=== PATIENT | female | born 1950 | race Caucasian/White ===

== ENCOUNTER → 2017-01-30 | Outpatient (CLI) | payer OTHER ==
[~2017-01-30] MED LIST: CALC-440 PO; CITRACAL PO; FOSAMAX PEG
--- NOTE | 2017-01-30 14:57 | DIAGNOSTIC IMAGING REPORT ---
LEFT WRIST 4 VIEWS CLINICAL HISTORY: Left wrist pain. No history of trauma. FINDINGS: 4 views of the left wrist are obtained. No prior studies are available for comparison at the time of dictation. The skeletal structures are osteopenic. No fracture is seen. The joint spaces of the wrist appear preserved. The overlying soft tissues are within normal limits. IMPRESSION: Osteopenia with no acute bony abnormality seen in the left wrist. Electronically signed by: Thong Benedict M.D. 01/30/2017 2:55 PM Dictated Date/Time: 01/30/2017 2:54 PM
[2017-01-30 18:42] LABS: LYME DISEASE AB IGG NEG (NEG); LYME DISEASE AB IGM NEG (NEG)
== END | disposition home or self-care (01) ==
LOC: C.RADPV 14:09
PROVIDERS: ATTEND Family Medicine
DX: M25.531 Pain in right wrist (principal); M19.90 Unspecified osteoarthritis, unspecified site; M85.832 Other specified disorders of bone density and structure, left forearm

== ENCOUNTER → 2017-03-02 | Outpatient (CLI) | payer OTHER ==
[2017-03-02 16:49] LABS: CALCIUM 9.3 mg/dl (8.5-10.1); CREATININE 0.75 mg/dl (0.60-1.20)
[2017-03-02 17:53] LABS: CALCIUM URINE 6.4 mg/dl
[2017-03-07 02:50] LABS: ANTI-CENTROMERE AB <1.0 NEG AI (<1.0 NEG); ANTI-SS-A <1.0 NEG AI (<1.0 NEG); ANTI-SS-B <1.0 NEG AI (<1.0 NEG); DNA ds CRITHIDIA NEGATIVE (NEGATIVE); Sm Antibody <1.0 NEG AI (<1.0 NEG)
== END | disposition home or self-care (01) ==
LOC: C.LAB1850 13:20
PROVIDERS: ATTEND Internal Medicine Rheumatology
DX: M81.0 Age-related osteoporosis without current pathological fracture (principal); M25.539 Pain in unspecified wrist; E83.50 Unspecified disorder of calcium metabolism

== ENCOUNTER → 2017-04-25 | Outpatient (CLI) | payer OTHER ==
--- NOTE | 2017-04-25 12:33 | MAMMOGRAPHY REPORT ---
BILATERAL DIGITAL SCREENING MAMMOGRAM WITH CAD: 04/25/2017 CLINICAL HISTORY: Routine screening. Patient has no complaints. TECHNIQUE: Bilateral CC and MLO views were obtained. Current study was also evaluated with a Compute r Aided Detection (CAD) system. COMPARISON: Comparison is made to exams dated: 04/21/2016 mammogram, 04/20/2015 mammogram, 04/17/2014 ma mmogram, 04/15/2013 mammogram, 02/10/2011 ultrasound, and 02/10/2011 mammogram - [facility] enter. BREAST COMPOSITION: There are scattered areas of fibroglandular density in both breasts. FINDINGS: A focal asymmetry in the upper outer quadrant of the left breast appears very similar datin g back to at least 12/08/2009, therefore likely benign. No new suspicious mass, architectural distor tion or cluster of microcalcifications is seen. IMPRESSION: ACR BI-RADS CATEGORY 1: NEGATIVE There is no mammographic evidence of malignancy. A 1 year screening mammogram is recommended. The pa tient will receive written notification of the results. Approximately 10% of breast cancers are not detected with mammography. A negative mammographic report should not delay biopsy if a clinically suggestive mass is present. Frances Lara M.D. ay/:04/25/2017 08:47:16 Top Collar Baster: Sahra Bender, [facility] letter sent: Normal 1/2 BI-RADS Code: ACR BI-RADS Category 1: Negative
== END | disposition home or self-care (01) ==
LOC: C.MAMM 08:27
PROVIDERS: ATTEND Obstetrics & Gynecology
DX: Z12.31 Encounter for screening mammogram for malignant neoplasm of breast (principal)

== ENCOUNTER → 2017-10-16 | Outpatient (CLI) | payer OTHER ==
--- NOTE | 2017-10-16 16:05 | DIAGNOSTIC IMAGING REPORT ---
L SHOULDER MIN 2 VIEWS ROUTINE CLINICAL HISTORY: 67 years-old Female presenting with LEFT SHOULDER PAIN. TECHNIQUE: Internal rotation, external rotation, and Grashey views of the left shoulder were obtained. COMPARISON: None. FINDINGS: Glenohumeral and acromioclavicular joints congruent. Mild degenerative changes noted at the glenohumeral joint with osteophytosis at both the bony glenoid and inferior humeral head. Joint spaces preserved. No subchondral sclerosis. No significant degenerative change at the acromioclavicular joint. No acute fracture or malalignment. No radiographic soft tissue abnormality. Visualized portion of the left hemithorax normal. IMPRESSION: No acute osseous injury of the left shoulder. Mild degenerative changes of the glenohumeral joint. Electronically signed by: Isaac Martin M.D. 10/16/2017 4:04 PM Dictated Date/Time: 10/16/2017 4:03 PM
== END | disposition home or self-care (01) ==
LOC: C.LABPVFM 15:49
PROVIDERS: ATTEND Family Medicine
DX: M19.012 Primary osteoarthritis, left shoulder (principal)

== ENCOUNTER → 2017-10-19 | Outpatient (CLI) | payer OTHER ==
--- NOTE | 2017-10-19 14:25 | DIAGNOSTIC IMAGING REPORT ---
L UPPER EXT JOINT WITHOUT CLINICAL HISTORY: 67 years-old Female presenting with M25.512 Left shoulder [id number], anterior shoulder pain, decreased range of motion, pain radiating down the left arm, no known injury. TECHNIQUE: Multisequence, multiplanar MR imaging of the left shoulder was performed without the use of intravenous contrast. IV contrast: None. COMPARISON: Plain radiographs of the left shoulder from 10/16/2017. FINDINGS: Localizer images: Unremarkable. Cortical irregularity and subchondral bony edema and cystic change noted at the posterior lateral superior humeral head suggesting a Hill-Sachs lesion. No other sites of bony edema. Minimal irregularity of the anterior labrum at 3:00. No focal labral tear. Increased intrasubstance signal intensity within the biceps labral complex suggesting degenerative change (series 6 image 8). Articular cartilage intact despite slight superior subluxation of the humeral head. Partial undersurface tear of the critical zone of the posterior supraspinatus-anterior infraspinatus fibers. There is also abnormal intrasubstance signal within the insertional fibers of the supraspinatus suggesting degenerative change. Teres minor tendon intact. Subscapularis tendon intact. Transverse ligament portion of the subscapularis also intact. The long head of the biceps tendon demonstrates a longitudinal tear (series 4 image 10), although the tendon remains within the intertubercular groove. Short head of the biceps tendon intact. Hypertrophic degenerative changes of the acromioclavicular joint. No significant bony spurring along the undersurface of the joint. The undersurface of the acromion is flat to concave. No significant joint effusion. Normal muscle bulk and muscle signal intensity. IMPRESSION: 1. Partial undersurface tear of the critical zone of the junctional fibers at the posterior supraspinatus-anterior infraspinatus. 2. Degenerative changes of the footplate of the supraspinatus. 3. Longitudinal tear of the long head of the biceps tendon. 4. Suggestion of Hill-Sachs lesion of the humeral head, which could imply prior dislocation. Irregularity of the anterior labrum could represent degenerative change or be posttraumatic in the setting of prior dislocation. 5. Degenerative changes of the acromioclavicular joint. Electronically signed by: Isaac Martin M.D. 10/19/2017 2:23 PM Dictated Date/Time: 10/19/2017 2:15 PM
== END | disposition home or self-care (01) ==
LOC: C.MRI 13:22
PROVIDERS: ATTEND Family Medicine
DX: M25.512 Pain in left shoulder (principal); M66.822 Spontaneous rupture of other tendons, left upper arm

== ENCOUNTER 2024-02-16 10:58 | Observation (INO) ==
[2024-02-16] MEDS: fentaNYL citrate PF 100 MCG/2 ML VIAL IV STA ×2 (11:50→13:39)
--- NOTE | 2024-02-16 11:53 | Emergency Department Note ---
Impression & Plan Fall on same level from tripping, Closed fracture of left distal radius, Closed fracture of right distal radius ED Provider Note CHIEF COMPLAINT: Fall, bilateral wrist injury HISTORY OF PRESENTING ILLNESS: This is a 74-year-old female who presents to the emergency department by private vehicle with her son with complaint of pain in the bilateral wrist after a fall earlier today. Patient states that she was walking and tripped, falling forward and catching her fall primarily with both hands/wrists. She also struck the front of her forehead on the sidewalk. She denies loss of consciousness. She denies any headache, vision changes, neck pain, numbness/tingling or weakness in the arms or legs, balance issues. She was able to get up and walk without difficulty after the fall. She has a small scrape on her right knee, but denies any pain in the knee, hip, ankle, or foot. She primarily complains of pain in both wrists, right more than left. She denies any lacerations or abrasions on the hands or wrists. She has difficulty moving the wrists and fingers of both hands because of pain. She denies any numbness or tingling in the hands or fingers. She denies any pain in the elbows or shoulders. She does note a previous fracture in her right wrist in 2010 that did not require surgery. She also notes a poor DEXA scan on her left wrist recently. She did not take anything for pain. She does not take any blood thinner medications. She denies any chest pain, chest tightness, shortness of breath, back pain, abdominal pain, urinary complaints. REVIEW OF SYSTEMS: A complete 10 point review of systems was reviewed with the patient with pertinent positives and negatives as per history of present illness. All else were negative. PAST MEDICAL HISTORY: Osteoporosis acid reflux, history of diverticulitis, history of tubal ligation and bowel resection SOCIAL HISTORY: Lives at home, denies tobacco use ALLERGIES: Reviewed in chart and with the patient PHYSICAL EXAM: CONSTITUTIONAL: Pleasant and cooperative. Nontoxic-appearing and in no acute distress. Well appearing and well nourished. HEENT: Normocephalic. There is a small abrasion in the mid upper forehead just below the hairline. No hematoma or palpable skull depression. PERRL, EOMI with no nystagmus, diplopia, or pain. TMs normal, no hemotympanum bilaterally. Pharynx normal. No loose or chipped teeth. NECK: Supple, full active range of motion without discomfort. No midline tenderness to palpation of the cervical spine. RESPIRATORY: Clear to auscultation bilaterally with no wheezing, crackles, rhonchi or stridor. Equal expansion bilaterally. CARDIOVASCULAR: Regular rate and rhythm. Normal peripheral perfusion. No edema. GASTROINTESTINAL: Soft, nontender, nondistended. Bowel sounds present in all quadrants. MUSCULOSKELETAL: There is moderate swelling in both wrists, greater in the right wrist with obvious deformity of the right wrist. There is tenderness to palpation primarily in the radial distribution of both wrists. No snuffbox tenderness bilaterally. Range of motion is limited in both wrists. There is no tenderness of the elbow, hand or fingers. Radial pulse 2+. Sensation to light touch intact throughout all 5 fingers in both hands. Able to move all of the fingers. Small superficial abrasion to the anterior right knee. Full range of motion of the knee without any pain and no tenderness to palpation or swelling noted on exam. DP pulse 2+. SKIN: Normal and intact. The hands are warm and well perfused with capillary refill less than 2 seconds. NEUROLOGIC: Alert and oriented X 4 with normal affect. Cranial nerves II-XII grossly intact, no facial droop. No focal neurologic deficits noted. Normal strength and sensation in all 4 extremities. Normal speech. Normal gait observed. ED COURSE AND MEDICAL DECISION MAKING: CC: Patient presenting with complaint of bilateral wrist pain after a fall DIFFERENTIAL DIAGNOSIS: Includes, but not limited to wrist contusion, hematoma, sprain/strain, fracture, dislocation, head contusion, skull fracture, intracranial hemorrhage, concussion, cervical spine injury, among others. MEDICATION RECONCILIATION: I attest that I have personally reviewed the patient's current medication list. INITIAL VITAL SIGNS REVIEW: I reviewed the patient's initial vital signs and interpret them as follows: T: Afebrile; BP: Normotensive; HR: Within normal limits; RR: Within normal limits; Pulse Ox: Within normal limits on room air. MDM SUMMARY: Patient was evaluated at bedside, history and physical exam performed. Patient is alert and oriented, in no acute distress, resting calmly in stretcher. She is neurologically intact with no focal deficits. Small forehead abrasion noted. No neck pain. Bilateral wrist injuries as noted above. Neurovascularly intact distal to the injuries. Orders were placed for IV placement, IV fentanyl for pain, x-rays of both wrists and CT of the head and cervical spine to evaluate for injury. Patient was placed on the cross country/track and field coach and monitored throughout the entire extent of their stay. In addition, the patient's pulse oximetry was monitored throughout the entire stay. Any abnormalities or aberrancies were addressed appropriately. Imaging was reviewed. CT imaging was negative for any acute traumatic findings. X-rays of the left and right wrist revealed acute intra-articular impacted fractures of the distal radius bones. Additionally, there may also be a right navicular fracture and right ulnar styloid fracture. I spoke on the phone with Dr. Kim, orthopedic surgery, who recommended splinting the patient and managing her pain and they will see her this week in the office for follow-up and surgical planning. I discussed all results with the patient and plan for probable surgery. The patient was placed in splints and a sling as above. The patient was initially agreeable to discharge home, however upon further thought she had significant concerns about her ability to care for herself at home, and is not comfortable having her son care for her. audio visual manager was consulted to evaluate the patient and an OT evaluation was also performed. They recommended admission of the patient for rehab placement. I spoke on the phone with Dr. Keating, [facility] hospitalist, who agrees to evaluate the patient for the admission. The patient was stable at the time of admission. Patient discussed with Dr. Womack, ED attending, who also evaluated the patient and agrees with my assessment, plan, and disposition. The chart was completed utilizing [employer] Speech voice recognition software. Grammatical errors, random word insertions, pronoun errors, and incomplete sentences are an occasional consequence of this system due to software limitations, ambient noise, and hardware issues. Any formal questions or concerns about the content, text, or information contained within the body of this dictation should be directly addressed to the nurse practitioner for clarification. Past Med/Surg History Medical History PONV (postoperative nausea and vomiting) Osteoporosis Acid reflux History of diverticulitis Surgical History History of cataract surgery History of benign breast biopsy History of tubal ligation History of esophagogastroduodenoscopy (EGD) History of colonoscopy History of bowel resection Family History Grandmother Diabetes Mother Leukemia Father Skin cancer Prostate cancer Sister Slow to wake up after anesthesia Denies family history of Ovarian cancer Breast cancer Colorectal cancer Social History Smoking Status: Never smoker Second Hand Exposure: No; Do You Dip or Chew Tobacco: No; Hx Alcohol Use: Yes Alcohol type: wine Alcohol Intake Frequency: 4 or More x per/Week Hx Substance Use: No Preferred Language: Italian Communication Ability: Effective Hearing Ability: Normal Power Shear Operator Required: No Beliefs That Will Affect Care: None marital status: / Current Living Situation: Alone current occupational status: retired How many Children do You have: 1 Feels Safe at Home: Yes Childhood Exposure to Second-Hand Smoke: Yes caffeine: Yes (coffee; one cup a day ) Dental Care, Regularly: Yes Physical Activity Frequency: Daily Seatbelt Use: always Sunscreen Use: Yes Assistive Devices: Glasses Allergies Allergies Allergy/AdvReac Type Severity Reaction Status Date / Time codeine Allergy Intermediate RASH & N/V Verified 12/25/23 09:57 Home Meds Home Medications Medication Instructions Recorded Confirmed calcium carbonate 500 mg-vitamin 1 tab PO QPM 05/28/19 02/16/24 D3 10 mcg (400 unit) tablet (Calcium 500 With D) zoledronic acid 5 mg/100 mL in See Rx Instructions .Route .COMPLEX 07/24/22 02/16/24 mannitol 5 %-water intravenous piggybck (Reclast) cholecalciferol (vitamin D3) 25 25 mcg PO DAILY 09/10/23 02/16/24 mcg (1,000 unit) capsule Previous Rx's Medication Instructions Recorded oxycodone 5 mg tablet 5 mg PO Q6H PRN pain, severe #12 02/16/24 tabs Results & Data (ED) Vital Signs Vital Signs - 24 hr 02/16/24 11:06 02/16/24 12:01 02/16/24 12:15 Temperature 37.1 C Temperature Source Temporal Artery Scan Pulse Rate 75 75 Pulse Rate [Apical] 67 Pulse Rhythm Regular Pulse Strength Normal Respiratory Rate 18 20 19 Respiratory Effort / Characteristics Non-Labored Non-Labored Spontaneous Respiratory Depth Normal Normal Respiratory Pattern Regular Blood Pressure 138/80 Blood Pressure [Right Arm] 138/72 Blood Pressure Mean 99 Blood Pressure Mean [Right Arm] 94 Blood Pressure Position Sitting Blood Pressure Position [Right Arm] Sitting Pulse Oximetry 99 100 100 Oxygen Delivery Method Room Air Room Air Room Air Sepsis Recent Fever Within 48 Hours No Sepsis New/Unexplained Change in Mental Status No Sepsis Action Taken by Nursing No Action Required 02/16/24 17:06 Temperature Temperature Source Pulse Rate Pulse Rate [Apical] 77 Pulse Rhythm Pulse Strength Respiratory Rate 20 Respiratory Effort / Characteristics Non-Labored Respiratory Depth Normal Respiratory Pattern Blood Pressure Blood Pressure [Right Arm] Blood Pressure Mean Blood Pressure Mean [Right Arm] Blood Pressure Position Blood Pressure Position [Right Arm] Pulse Oximetry 98 Oxygen Delivery Method Room Air Sepsis Recent Fever Within 48 Hours Sepsis New/Unexplained Change in Mental Status Sepsis Action Taken by Nursing Administered Medications Discontinued Medications Fentanyl Citrate (Fentanyl Citrate Pf 100 Mcg/2 Ml Vial) 50 mcg IV NOW STA Stop: 02/16/24 11:42 Last Admin: 02/16/24 11:50 Dose: 50 mcg Documented By: CC Fentanyl Citrate (Fentanyl Citrate Pf 100 Mcg/2 Ml Vial) 50 mcg IV NOW STA Stop: 02/16/24 13:25 Last Admin: 02/16/24 13:39 Dose: 50 mcg Documented By: KT Imaging Data Radiologist's Impression: Cervical Spine CT 02/16/24 11:40 CT OF THE CERVICAL SPINE WITHOUT CONTRAST CLINICAL HISTORY: fall, hit head COMPARISON STUDY: Cervical spine radiographs July 16, 2010. TECHNIQUE: Helical axial images of the cervical spine were obtained without IV contrast. Sagittal and coronal reconstructions were viewed. Automated exposure control was utilized for the study. A dose lowering technique was utilized adhering to the principles of ALARA. FINDINGS: Alignment of the cervical spine with reversal of the cervical lordosis is similar to radiographs July 16, 2010. There is no acute cervical spine fracture. Multilevel disc space narrowing is most pronounced at the C5-C6 level. There is no prevertebral edema. Moderate multilevel facet arthrosis is present. Incidental note is made of several peripherally calcified left lobe thyroid nodules which measure up to approximately 1.7 cm. IMPRESSION: No acute cervical spine fracture or subluxation. ACT 112: Negative or not required by law. Electronically signed by: Zach Jimenez M.D. 02/16/2024 12:[address] 02/16/24 11:40 CT OF THE HEAD WITHOUT CONTRAST CLINICAL HISTORY: fall, hit head COMPARISON STUDY: No previous studies for comparison. TECHNIQUE: Helical axial images of the head were obtained without IV contrast. Automated exposure control was utilized for the study. A dose lowering technique was utilized adhering to the principles of ALARA. FINDINGS: No acute intracranial hemorrhage, midline shift or mass effect is present. The ventricular system is unremarkable. The basal cisterns are patent. No extra-axial collections are present. There are no findings to suggest acute dural sinus thrombosis or acute territorial infarct. No significant calvarial abnormalities are present. Visualized portions of the sinuses and mastoid air cells are clear. IMPRESSION: 1. No acute intracranial findings. 2. No calvarial fractures. ACT 112: Negative or not required by law. Electronically signed by: Zach Jimenez M.D. 02/16/2024 12:44 PM Wrist X-Ray 02/16/24 11:40 XR wrist RT min 3V routine CLINICAL HISTORY: foosh COMPARISON: None FINDINGS: There is an acute comminuted impacted displaced intra-articular distal right radial fracture. Dorsal tilt of the distal component is noted. Right wrist soft tissue swelling is noted. A lucency projects over the dorsal navicular. Possible nondisplaced fracture of the ulnar styloid. IMPRESSION: 1. Acute comminuted impacted displaced intra-articular distal right radial fracture with dorsal tilt of the distal component. 2. Lucency which projects over the dorsal navicular. This is likely artifactual however an acute nondisplaced fracture cannot be excluded. 3. Possible nondisplaced fracture of the ulnar styloid. ACT 112: Negative or not required by law. Electronically signed by: Zach Jimenez M.D. 02/16/2024 12:20 PM Wrist X-Ray 02/16/24 11:40 XR wrist LT min 3V routine CLINICAL HISTORY: foosh COMPARISON: Left wrist radiographs January 30, 2017. FINDINGS: There is an acute comminuted mildly displaced fracture of the dorsal left radius with intra-articular extension. Distal left ulna is intact. There is chondrocalcinosis within the TFCC. No carpal bone fractures are identified. There is left wrist soft tissue swelling. IMPRESSION: Acute comminuted mildly displaced distal left radial fracture with intra-articular extension. ACT 112: Negative or not required by law. Electronically signed by: Zach Jimenez M.D. 02/16/2024 12:21 PM Discharge Plan Visit Data Chief Complaint: Wrist Pain Stated Complaint: BILATERAL WRIST INJURY S/P FALL ED Provider: Rodolfo Womack ED Midlevel Provider: Ellyn Arteaga Discharge Problem: Fall on same level from tripping, Closed fracture of left distal radius, Closed fracture of right distal radius Patient Disposition: Admitted As Inpatient Condition: Good Forms Stand Alone Forms: [facility], Important Visit Information Prescriptions Prescriptions: New oxycodone 5 mg tablet 5 mg PO Q6H PRN (Reason: pain, severe) Qty: 12 0RF No Action calcium carbonate-vitamin D3 [Calcium 500 With D] 500 mg(1,250mg) -400 unit tablet 1 tab PO QPM zoledronic [id number] [Reclast] 5 mg/100 mL piggyback See Rx Instructions .ROUTE .COMPLEX Rx Instructions: PATIENT DOES THIS YEARLY cholecalciferol (vitamin D3) 25 mcg (1,000 unit) capsule 25 mcg PO DAILY Referrals Referrals: Margie Barahona MD [Primary Care Provider] - Amrik Kim DO [Surgeon] - Discharge Problem: Closed fracture of left distal radius Qualifiers: Encounter type: initial encounter Closed fracture of right distal radius Qualifiers: Encounter type: initial encounter
--- NOTE | 2024-02-16 12:23 | XRay Report ---
XR wrist LT min 3V routine CLINICAL HISTORY: foosh COMPARISON: Left wrist radiographs January 30, 2017. FINDINGS: There is an acute comminuted mildly displaced fracture of the dorsal left radius with intr a-articular extension. Distal left ulna is intact. There is chondrocalcinosis within the TFCC. No car pal bone fractures are identified. There is left wrist soft tissue swelling. IMPRESSION: Acute comminuted mildly displaced distal left radial fracture with intra-articular extens ion. ACT 112: Negative or not required by law. Electronically signed by: Zach Jimenez M.D. 02/16/2024 12:21 PM
--- NOTE | 2024-02-16 12:23 | XRay Report ---
XR wrist RT min 3V routine CLINICAL HISTORY: foshonna COMPARISON: None FINDINGS: There is an acute comminuted impacted displaced intra-articular distal right radial fractu re. Dorsal tilt of the distal component is noted. Right wrist soft tissue swelling is noted. A lucenc y projects over the dorsal navicular. Possible nondisplaced fracture of the ulnar styloid. IMPRESSION: 1. Acute comminuted impacted displaced intra-articular distal right radial fracture with dorsal tilt of the distal component. 2. Lucency which projects over the dorsal navicular. This is likely artifactual however an acute nond isplaced fracture cannot be excluded. 3. Possible nondisplaced fracture of the ulnar styloid. ACT 112: Negative or not required by law. Electronically signed by: Zach Jimenez M.D. 02/16/2024 12:20 PM
--- NOTE | 2024-02-16 12:32 | Emergency Department Note ---
ED Visit Note I was consulted by the Advanced Practice Provider TEMO Marinelli. I personally made/approved the management plan and take responsibility for the patient management. I performed a substantive portion of the visit. This includes the aspects of: -History/Physical/Personally seeing the patient -MDM -I independently interpreted the following studies: I interpreted the patient's right wrist x-ray which does show impacted and displaced distal radius fracture. I interpreted the patient's left wrist x-ray which does show distal radius fracture. Patient presents status post ground-level fall to both arms outstretched patient does have bilateral wrist fractures. CT and cervical spine negative. OT evaluated the patient did not the patient to go home and the patient was admitted to the medicine service. Rules: [place] Island[place] head CT rule Definitive Fracture Care note: Dx: Left wrist fracture Plan: Immobilization, rest, ice, elevation, analgesia, orthopedic follow up in 3-5 days. .
--- NOTE | 2024-02-16 12:45 | CT Scan Report ---
CT OF THE HEAD WITHOUT CONTRAST CLINICAL HISTORY: fall, hit head COMPARISON STUDY: No previous studies for comparison. TECHNIQUE: Helical axial images of the head were obtained without IV contrast. Automated exposure con trol was utilized for the study. A dose lowering technique was utilized adhering to the principles o f ALARA. FINDINGS: No acute intracranial hemorrhage, midline shift or mass effect is present. The ventricular system is unremarkable. The basal cisterns are patent. No extra-axial collections are present. There are no findings to suggest acute dural sinus thrombosis or acute territorial infarct. No significant calvarial abnormalities are present. Visualized portions of the sinuses and mastoid air cells are vladimir ar. IMPRESSION: 1. No acute intracranial findings. 2. No calvarial fractures. ACT 112: Negative or not required by law. Electronically signed by: Zach Jimenez M.D. 02/16/2024 12:44 PM
--- NOTE | 2024-02-16 12:51 | CT Scan Report ---
CT OF THE CERVICAL SPINE WITHOUT CONTRAST CLINICAL HISTORY: fall, hit head COMPARISON STUDY: Cervical spine radiographs July 16, 2010. TECHNIQUE: Helical axial images of the cervical spine were obtained without IV contrast. Sagittal a nd coronal reconstructions were viewed. Automated exposure control was utilized for the study. A do se lowering technique was utilized adhering to the principles of ALARA. FINDINGS: Alignment of the cervical spine with reversal of the cervical lordosis is similar to radiog raphs July 16, 2010. There is no acute cervical spine fracture. Multilevel disc space narrowing is most pronounced at the C5-C6 level. There is no prevertebral edema. Moderate multilevel facet arth rosis is present. Incidental note is made of several peripherally calcified left lobe thyroid nodules which measure up to approximately 1.7 cm. IMPRESSION: No acute cervical spine fracture or subluxation. ACT 112: Negative or not required by law. Electronically signed by: Zach Jimenez M.D. 02/16/2024 12:49 PM
--- NOTE | 2024-02-16 17:48 | History & Physical Report ---
Date of Service February 16, 2024 Assessment & Plan (1) Fall: Plan: Patient tripped on uneven sidewalk at 10 AM on 02/15 and fell on her wrists, right knee, and struck her right forehead No LOC; not on blood thinners Head/cervical spine CTs without acute findings Right wrist x-ray revealed acute comminuted impacted displaced distal right radial fracture Left wrist x-ray revealed acute comminuted mildly displaced distal left radial fracture Orthopedics consulted; patient likely to require surgery on her right wrist N.p.o. at midnight Acetaminophen as needed for pain Oxycodone p.o. as needed for breakthrough pain; can switch to Dilaudid IV or fentanyl IV once peripheral IV is placed Peripheral IV ordered, pending Fall precautions PT/OT consulted; upper extremity nonweightbearing A.m. CBC, CMP, mag (2) Closed fracture of left distal radius: (3) Closed fracture of right distal radius: Plan Disposition: Admit to [facility] Full code Regular diet; n.p.o. at midnight VTE PPx: SCDs (will hold chemical DVT PPx until seen by orthopedics) History of Present Illness Chief Complaint: Fall, wrist pain Primary Care Provider: Margie Barahona MD Opal is a pleasant 74yo female with PMH of osteoporosis and anaplasmosis. She presented after tripping on the sidewalk today and catching her self on her wrists on 02/15. Patient was reportedly out walking with her son (Vicente) this morning around 10 AM. She normally uses trekking poles to assist with walking, but she was not using them this morning. She stepped on an uneven sidewalk while looking at a lawn ornament and fell forward onto her right knee, wrists bilaterally, and struck her right forehead. Not on blood thinners. No LOC. She denies any recent falls, and does not normally use ambulatory assist devices such as a walker or a cane. She endorses 11/10 bilateral wrist pain at its worst, but reports the pain is well-controlled in the ED and is currently at 2/10. No radiation of over the mid forearm bilaterally. She did take 2 Advil prior to coming in. She does not take daily medications other than her vitamin D and multivitamin. Patient does not remember what she took when she developed a codeine rash and nausea in the past, but notes it was more than 20 years ago; is amenable to trying oxycodone as needed (prior to new peripheral IV insertion). Patient's vitals are stable at time of admission. ED course: Fentanyl 50 mcg IV x 2 ROS: Patient endorses pain in both wrists, and initial numbness and tingling in the wrist/hands (that has resolved), and some nausea following the event. Patient denies fever, chills, night sweats, dizziness or lightheadedness prior to fall, headache, changes in vision, chest pain, pleuritic CP, chest palpitations, cough, abdominal pain, vomiting, diarrhea, change in urinary/bowel habits, or unresolved numbness and tingling in the arms. Allergies Allergy/AdvReac Type Severity Reaction Status Date / Time codeine Allergy Intermediate RASH & N/V Verified 12/25/23 09:57 Home Medications Medication Instructions Recorded Confirmed Type calcium carbonate 500 mg-vitamin 1 tab PO QPM 05/28/19 02/16/24 History D3 10 mcg (400 unit) tablet (Calcium 500 With D) zoledronic acid 5 mg/100 mL in See Rx Instructions .Route .COMPLEX 07/24/22 02/16/24 History mannitol 5 %-water intravenous piggybck (Reclast) cholecalciferol (vitamin D3) 25 25 mcg PO DAILY 09/10/23 02/16/24 History mcg (1,000 unit) capsule oxycodone 5 mg tablet 5 mg PO Q6H PRN pain, severe #12 02/16/24 Rx tabs Past Med/Surg History Medical History PONV (postoperative nausea and vomiting) Osteoporosis Acid reflux History of diverticulitis Surgical History History of cataract surgery History of benign breast biopsy History of tubal ligation History of esophagogastroduodenoscopy (EGD) History of colonoscopy History of bowel resection Family History Grandmother Diabetes Mother Leukemia Father Skin cancer Prostate cancer Sister Slow to wake up after anesthesia Denies family history of Ovarian cancer Breast cancer Colorectal cancer Social History Smoking Status: Never smoker Second Hand Exposure: No; Do You Dip or Chew Tobacco: No; Hx Alcohol Use: Yes Alcohol type: wine Alcohol Intake Frequency: 4 or More x per/Week Hx Substance Use: No Preferred Language: Stateless Communication Ability: Effective Hearing Ability: Normal House Fellow Required: No Beliefs That Will Affect Care: None marital status: / Current Living Situation: Alone current occupational status: retired How many Children do You have: 1 Other Information That Helps Us Care for You: No Feels Safe at Home: Yes Safety Concerns: Feels Safe At This Time Childhood Exposure to Second-Hand Smoke: Yes caffeine: Yes (coffee; one cup a day ) Dental Care, Regularly: Yes Physical Activity Frequency: Daily Seatbelt Use: always Sunscreen Use: Yes Assistive Devices: None Review of Systems Review of Systems: See HPI above Physical Exam Physical Exam: General: no acute distress; pleasant affect; non-toxic appearing; well- nourished; cooperative; 98% on RA HEENT: normocephalic, atraumatic; no scleral icterus; PERRLA w/ EOMs intact; moist mucus membrane; vision and hearing grossly intact Neck: supple; no lymphadenopathy; trachea midline Skin: warm, dry without signs of tenting; no cyanosis; no rashes, bruising, lesions, or erythema noted CV: chest wall NTP; RRR; S1/S2 normal; no murmurs/rubs/gallops; pulses intact and symmetric at radial, DP, and PT Lungs: no acute respiratory distress; symmetrical chest wall expansion; clear breath sounds across all lung schilling w/o adventitious sounds; no wheezing ABD: Soft, NTP; BS present; no rebound/guarding; no distention MSK: no tics or fasciculations; no edema noted in the LEs b/l, nonerythematous Neuro: A&Ox3; normal mood and affect; fluent speech; no focal deficits; sensation grossly intact in the LEs b/l Results & Data Results & Data Vital Signs (Past 12 Hours) Vital Signs Temp Pulse Pulse Resp BP BP Pulse Ox 02/16/24 17:06 77 20 98 02/16/24 12:15 67 19 138/72 100 02/16/24 12:01 75 20 100 02/16/24 11:06 37.1 C 75 18 138/80 99 O2 Del Method 02/16/24 17:06 Room Air 02/16/24 12:15 Room Air 02/16/24 12:01 Room Air 02/16/24 11:06 Room Air Diagnostic Findings Cervical Spine CT 02/16/24 11:40 CT OF THE CERVICAL SPINE WITHOUT CONTRAST CLINICAL HISTORY: fall, hit head COMPARISON STUDY: Cervical spine radiographs July 16, 2010. TECHNIQUE: Helical axial images of the cervical spine were obtained without IV contrast. Sagittal and coronal reconstructions were viewed. Automated exposure control was utilized for the study. A dose lowering technique was utilized adhering to the principles of ALARA. FINDINGS: Alignment of the cervical spine with reversal of the cervical lordosis is similar to radiographs July 16, 2010. There is no acute cervical spine fracture. Multilevel disc space narrowing is most pronounced at the C5-C6 level. There is no prevertebral edema. Moderate multilevel facet arthrosis is present. Incidental note is made of several peripherally calcified left lobe thyroid nodules which measure up to approximately 1.7 cm. IMPRESSION: No acute cervical spine fracture or subluxation. ACT 112: Negative or not required by law. Electronically signed by: Zach Jimenez M.D. 02/16/2024 12:[address] 02/16/24 11:40 CT OF THE HEAD WITHOUT CONTRAST CLINICAL HISTORY: fall, hit head COMPARISON STUDY: No previous studies for comparison. TECHNIQUE: Helical axial images of the head were obtained without IV contrast. Automated exposure control was utilized for the study. A dose lowering technique was utilized adhering to the principles of ALARA. FINDINGS: No acute intracranial hemorrhage, midline shift or mass effect is present. The ventricular system is unremarkable. The basal cisterns are patent. No extra-axial collections are present. There are no findings to suggest acute dural sinus thrombosis or acute territorial infarct. No significant calvarial abnormalities are present. Visualized portions of the sinuses and mastoid air cells are clear. IMPRESSION: 1. No acute intracranial findings. 2. No calvarial fractures. ACT 112: Negative or not required by law. Electronically signed by: Zach Jimenez M.D. 02/16/2024 12:44 PM Wrist X-Ray 02/16/24 11:40 XR wrist RT min 3V routine CLINICAL HISTORY: foosh COMPARISON: None FINDINGS: There is an acute comminuted impacted displaced intra-articular distal right radial fracture. Dorsal tilt of the distal component is noted. Right wrist soft tissue swelling is noted. A lucency projects over the dorsal navicular. Possible nondisplaced fracture of the ulnar styloid. IMPRESSION: 1. Acute comminuted impacted displaced intra-articular distal right radial fracture with dorsal tilt of the distal component. 2. Lucency which projects over the dorsal navicular. This is likely artifactual however an acute nondisplaced fracture cannot be excluded. 3. Possible nondisplaced fracture of the ulnar styloid. ACT 112: Negative or not required by law. Electronically signed by: Zach Jimenez M.D. 02/16/2024 12:20 PM Wrist X-Ray 02/16/24 11:40 XR wrist LT min 3V routine CLINICAL HISTORY: foosh COMPARISON: Left wrist radiographs January 30, 2017. FINDINGS: There is an acute comminuted mildly displaced fracture of the dorsal left radius with intra-articular extension. Distal left ulna is intact. There is chondrocalcinosis within the TFCC. No carpal bone fractures are identified. There is left wrist soft tissue swelling. IMPRESSION: Acute comminuted mildly displaced distal left radial fracture with intra-articular extension. ACT 112: Negative or not required by law. Electronically signed by: Zach Jimenez M.D. 02/16/2024 12:21 PM Code Status & VTE Plan Code Status Full code (discussed at the bedside with both patient and patient's son) Supervising Physician Co-Signing Physician Notes The patient was seen by me. The chart was reviewed. Case discussed with MAGGI Del Rosario. Agree with assessment and plan PG Care Time/CCT Total # of Minutes Spent Total Time Spent with Patient: Total time spent is greater than 50% in coordination of care (as documented) at patient's floor/unit and/or counseling patient: [place] [address] INT INP/OBS CARE 1/40MIN Patient Type New Medical Decision Making Low Complexity Diagnoses Fall W19.XXXA Closed fracture of left distal radius S52.502A Encounter type: initial encounter Closed fracture of right distal radius S52.501A Encounter type: initial encounter (2) Closed fracture of left distal radius Encounter type: initial encounter (3) Closed fracture of right distal radius Encounter type: initial encounter
[2024-02-16] MEDS: ACETAMINOPHEN 325 MG TAB PO STA (19:33)
[2024-02-16] MEDS ORDERED: MELATONIN 3 MG TAB PO PRN (20:57)
[2024-02-16] MEDS ORDERED: oxyCODONE HCL IR 5 MG TAB (IMMEDIATE RELEASE) PO PRN (20:57)
[2024-02-16] MEDS: MELATONIN 3 MG TAB PO PRN (22:07)
[2024-02-16] MEDS: oxyCODONE HCL IR 5 MG TAB (IMMEDIATE RELEASE) PO PRN (22:07)
[2024-02-17] MEDS: ACETAMINOPHEN 325 MG TAB PO PRN (00:04)
[2024-02-17 05:49] LABS: Basophils # (auto) 0.03 K/uL (0.00-0.20); Basophils % (auto) 0.6 %; Eosinophils # (auto) 0.06 K/uL (0.00-0.50); Eosinophils % (auto) 1.2 %; Hematocrit (blood only) 39.5 % (37.0-47.0); Immature Granulocytes # (auto) 0.02 K/uL (0.01-0.20); Immature Granulocytes % (auto) 0.4 %; Lymphocytes # (auto) 0.72 K/uL (1.20-3.40); Lymphocytes % (auto) 14.8 %; Mean Corpuscular Hemoglobin 31.7 pg (25.0-34.0); Mean Corpuscular Hgb Conc 32.9 g/dL (32.0-36.0); Mean Corpuscular Volume 96.3 fL (80.0-100.0); Mean Platelet Volume 9.8 fL (9.4-12.4); Monocytes # (auto) 0.77 K/uL (0.11-0.59); Monocytes % (auto) 15.8 %; Neutrophils # (auto) 3.28 K/uL (1.40-6.50); Neutrophils % (auto) 67.2 %; Platelet Count 218 K/uL (130-400); White Blood Count 4.88 K/ul (4.8-10.8)
[2024-02-17 06:03] LABS: Albumin Globulin Ratio 2.2 (0.9-2); Albumin Level 3.8 gm/dl (3.4-5.0); BUN Creatinine Ratio 19.7 (10-20); Bilirubin,Total 0.5 mg/dl (0.2-1.0); Calcium 8.5 mg/dl (8.6-10.3); Creatinine Clr Calc Pharmacy 55.7 ml/min; Est GFR (African American) 89.6 ml/min; Est GFR (Non-African American) 77.3 ml/min; Globulin 1.7 gm/dl (2.5-4.0); Magnesium 1.9 mg/dl (1.7-2.4); Potassium 4.1 mmol/L (3.5-5.1); Total Protein 5.5 gm/dl (6.0-8.3)
--- NOTE | 2024-02-17 09:58 | CT Scan Report ---
RIGHT WRIST CT CT DOSE: 257.94 mGy.cm HISTORY: Right wrist fracture TECHNIQUE: Multiaxial CT images of the right wrist were performed and reformatted in the sagittal and coronal plane without the use of contrast. A dose lowering technique was utilized adhering to the p rinciples of ARIANA. COMPARISON: Right wrist radiograph 02/16/2024. FINDINGS: There is an acute comminuted and mildly impacted intra-articular fracture within the distal right radius. This demonstrates 2 mm of impaction and 3 mm of dorsal displacement. Nondisplaced frac ture at the ulnar styloid. Small lucency at the dorsal aspect of the scaphoid again noted. This likel y represents a subacute to chronic nondisplaced fracture. No dislocation. Diffuse soft tissue swellin g within the wrist. There is a right wrist effusion. IMPRESSION: 1. Redemonstration of a distal radius and ulnar styloid fractures as described above. 2. Small lucency at the dorsal aspect of the scaphoid appears to represent a subacute to chronic nond isplaced fracture. ACT 112: Negative or not required by law. Electronically signed by: Nito Joaquin M.D. 02/17/2024 9:56 AM
--- NOTE | 2024-02-17 10:18 | Orthopedic Consultation ---
Date of Consultation February 17, 2024 Assessment & Plan (1) Closed fracture of right distal radius: 74-year-old female with bilateral distal radius fractures -Nonweightbearing right upper extremity in sugar-tong splint -May transition to left cock up wrist splint to allow for basic hygiene,try and limit any lifting to under 2 pounds involving the left upper extremity -Pain control -Medical management -Patient is otherwise healthy. From orthopedic standpoint she may be discharged home with home health versus placement and undergo operative fixation of her right distal radius fracture as an outpatient. Patient may follow-up this week upon discharge. We will sign off at this time (2) Closed fracture of left distal radius: History of Present Illness Reason for Consultation: Bilateral distal radius fractures Attending Physician: Dc Martinez MD History of Present Illness 74-year-old female [id number] presenting after sustaining a ground- level fall onto bilateral outstretched wrists. In the emergency department she was found to have bilateral distal radius fractures. The right fracture being much more comminuted than the left fracture. Due to having bilateral wrist fractures she was admitted to medical service for potential placement needs versus being set up with home health. Orthopedics was consulted for management Allergies Allergy/AdvReac Type Severity Reaction Status Date / Time codeine Allergy Intermediate RASH & N/V Verified 12/25/23 09:57 Home Medications Medication Instructions Recorded Confirmed Type calcium carbonate 500 mg-vitamin 1 tab PO QPM 05/28/19 02/16/24 History D3 10 mcg (400 unit) tablet (Calcium 500 With D) zoledronic acid 5 mg/100 mL in See Rx Instructions .Route .COMPLEX 07/24/22 02/16/24 History mannitol 5 %-water intravenous piggybck (Reclast) cholecalciferol (vitamin D3) 25 25 mcg PO DAILY 09/10/23 02/16/24 History mcg (1,000 unit) capsule oxycodone 5 mg tablet 5 mg PO Q6H PRN pain, severe #12 02/16/24 Rx tabs Patient History Medical History PONV (postoperative nausea and vomiting) Osteoporosis Acid reflux History of diverticulitis Surgical History History of cataract surgery History of benign breast biopsy History of tubal ligation History of esophagogastroduodenoscopy (EGD) History of colonoscopy History of bowel resection Family History Grandmother Diabetes Mother Leukemia Father Skin cancer Prostate cancer Sister Slow to wake up after anesthesia Denies family history of Ovarian cancer Breast cancer Colorectal cancer Social History Smoking Status: Never smoker Second Hand Exposure: No; Do You Dip or Chew Tobacco: No; Hx Alcohol Use: Yes Alcohol type: wine Alcohol Intake Frequency: 4 or More x per/Week Hx Substance Use: No Preferred Language: Estonian Communication Ability: Effective Hearing Ability: Normal Manager [employer] Required: No Beliefs That Will Affect Care: None marital status: / Current Living Situation: Alone current occupational status: retired How many Children do You have: 1 Other Information That Helps Us Care for You: No Feels Safe at Home: Yes Safety Concerns: Feels Safe At This Time Childhood Exposure to Second-Hand Smoke: Yes caffeine: Yes (coffee; one cup a day ) Dental Care, Regularly: Yes Physical Activity Frequency: Daily Seatbelt Use: always Sunscreen Use: Yes Assistive Devices: None Physical Exam Constitutional: No acute distress, resting in bed Musculoskeletal: Right upper extremity -In sugar-tong splint - silt srad/m/u - fires apl/fpl/edc/fdp/adrián - bcr over digits Leftt upper extremity -In sugar-tong splint - silt srad/m/u - fires apl/fpl/edc/fdp/adrián - bcr over digits Results & Data Vital Signs (Past 12 Hours) Vital Signs Temp Pulse Resp BP Pulse Ox O2 Del Method 02/17/24 07:24 36.8 C 83 16 125/76 98 Room Air (1) Closed fracture of right distal radius Encounter type: initial encounter (2) Closed fracture of left distal radius Encounter type: initial encounter
--- NOTE | 2024-02-17 10:48 | Electrocardiogram Report ---
Test Reason : Blood Pressure : / mmHG Vent. Rate : 075 BPM Atrial Rate : 075 BPM P-R Int : 192 ms QRS Dur : 074 ms QT Int : 406 ms P-R-T Axes : 041 039 040 degrees QTc Int : 453 ms Normal sinus rhythm Low voltage QRS Borderline ECG When compared with ECG of 11-FEB-2021 15:53, Premature atrial complexes are no longer Present ST no longer elevated in Inferior leads Confirmed by Ramu Henao ([id number]) on 02/17/2024 10:47:52 AM Referred By: REFERRED SELF Confirmed By:Ramu Henao
--- NOTE | 2024-02-17 14:49 | Hospitalist Progress Note ---
Date of Service February 17, 2024 Assessment & Plan (1) Fall: Plan: Patient tripped on uneven sidewalk at 10 AM on 02/15 and fell on her wrists, right knee, and struck her right forehead No LOC; not on blood thinners Head/cervical spine CTs without acute findings Right wrist x-ray revealed acute comminuted impacted displaced distal right radial fracture Left wrist x-ray revealed acute comminuted mildly displaced distal left radial fracture Orthopedics consulted - can downgrade left wrist to left cock up wrist splint - limit lifting over two pounds - nonweight bearing right extremity, sugar tong splint - outpatient follow up for surgery on right wrist PT/OT consulted; upper extremity nonweightbearing Pain control (2) Closed fracture of left distal radius: (3) Closed fracture of right distal radius: Plan Disposition: pending pt ability to preform ADLs and support at home Admission and Anticipated Discharge Date Admission Date: February 16, 2024 Supervising Physician Co-Signing Physician Notes Attending Attestation - Chart reviewed, care plan d/w PA Karen Brown. I agree w/ the [place] components of her documentation. Appreciate orthopedic assistance. Dc Martinez MD Subjective Patient seen at beside this morning while orthopedics present. Overall she is feeling well just struggling with the limited movement of both arms. Revisted after being able to have left splint reduced - was able to eat some, has not tried to go to the bathroom. Discussed the resources that would be available to here tomorrow through CM/PT/OT Review of Systems Review of Systems: All systems reviewed & are unremarkable except as noted in Subjective Physical Exam Physical Exam: General: NAD, VS as above Resp: normal respiratory effort, lungs clear to auscultation CV: RRR, no murmur, Extremities: b/l arms in sugar tong splints, distal sensation in tact Neuro: A&O x3, Results & Data Results & Data Vital Signs (Past 12 Hours) Vital Signs Temp Pulse Resp BP Pulse Ox O2 Del Method 02/17/24 07:24 36.8 C 83 16 125/76 98 Room Air PG Care Time/CCT Total # of Minutes Spent Total Time Spent with Patient: Total time spent is greater than 50% in coordination of care (as documented) at patient's floor/unit and/or counseling patient: Coding Level of Care Code 68215 SUB INP/OBS CARE MIN Diagnoses Fall W19.XXXA Closed fracture of left distal radius S52.502A Encounter type: initial encounter Closed fracture of right distal radius S52.501A Encounter type: initial encounter (2) Closed fracture of left distal radius Encounter type: initial encounter (3) Closed fracture of right distal radius Encounter type: initial encounter
[2024-02-18 06:41] LABS: Basophils # (auto) 0.01 K/uL (0.00-0.20); Basophils % (auto) 0.2 %; Eosinophils # (auto) 0.11 K/uL (0.00-0.50); Eosinophils % (auto) 2.5 %; Hematocrit (blood only) 39.2 % (37.0-47.0); Hemoglobin 13.1 g/dl (12.0-16.0); Immature Granulocytes # (auto) 0.02 K/uL (0.01-0.20); Immature Granulocytes % (auto) 0.5 %; Lymphocytes # (auto) 0.88 K/uL (1.20-3.40); Lymphocytes % (auto) 20.4 %; Mean Corpuscular Hemoglobin 32.3 pg (25.0-34.0); Mean Corpuscular Hgb Conc 33.4 g/dL (32.0-36.0); Mean Corpuscular Volume 96.6 fL (80.0-100.0); Mean Platelet Volume 10.1 fL (9.4-12.4); Monocytes # (auto) 0.75 K/uL (0.11-0.59); Monocytes % (auto) 17.4 %; Neutrophils # (auto) 2.55 K/uL (1.40-6.50); Platelet Count 198 K/uL (130-400); RDW Coefficient of Variation 13.1 % (11.5-14.5); RDW Standard Deviation 46.3 fL (36.4-46.3); Red Blood Count 4.06 M/uL (4.20-5.40); White Blood Count 4.32 K/ul (4.8-10.8)
--- NOTE | 2024-02-18 09:21 | Orthopedic Progress Note ---
Date of Service February 18, 2024 Assessment & Plan (1) Closed fracture of right distal radius: Plan: 74 yo female stable with bilateral wrist fractures. Reviewed xrays with Dr Deng. Would recommend bilateral ORIF. Discussed with pt. She is in agreement. Follow-up as outpt upon discharge for potential surgery 02/21/24 (2) Closed fracture of left distal radius: Admission and Anticipated Discharge Date Admission Date: February 16, 2024 Subjective Pt sitting bedside, no complaints, anxious for definitive treatment Physical Exam Physical Exam: Left wrist in cock-up wrist brace, right wrist in sugar tong splint Results & Data Vital Signs (Past 12 Hours) Vital Signs Temp Pulse Resp BP Pulse Ox O2 Del Method 02/18/24 07:42 36.6 C 70 17 150/90 H 95 Room Air Laboratory Results 02/18/24 Range/Units 06:07 WBC 4.32 L (4.8-10.8) K/ul RBC 4.06 L (4.20-5.40) M/uL Hgb 13.1 (12.0-16.0) g/dl Hct 39.2 (37.0-47.0) % MCV 96.6 (80.0-100.0) fL MCH 32.3 (25.0-34.0) pg MCHC 33.4 (32.0-36.0) g/dL RDW Std Deviation 46.3 (36.4-46.3) fL RDW Coeff of Nicolasa 13.1 (11.5-14.5) % Plt Count 198 (130-400) K/uL MPV 10.1 (9.4-12.4) fL Immature Gran % (Auto) 0.5 % Neut % (Auto) 59.0 % Lymph % (Auto) 20.4 % [place] % (Auto) 17.4 % Eos % (Auto) 2.5 % Baso % (Auto) 0.2 % Neut # (Auto) 2.55 (1.40-6.50) K/uL Lymph # (Auto) 0.88 L (1.20-3.40) K/uL [place] # (Auto) 0.75 H (0.11-0.59) K/uL Eos # (Auto) 0.11 (0.00-0.50) K/uL Baso # (Auto) 0.01 (0.00-0.20) K/uL Immature Gran # (Auto) 0.02 (0.01-0.20) K/uL 25-OH Vitamin D Total 34.6 (30-100) ng/ml (1) Closed fracture of right distal radius Encounter type: initial encounter (2) Closed fracture of left distal radius Encounter type: initial encounter
--- NOTE | 2024-02-18 17:30 | Hospitalist Progress Note ---
Date of Service February 18, 2024 Assessment & Plan (1) Fall: Plan: - Patient tripped on uneven sidewalk at 10 AM on 02/15 and fell on her wrists, right knee, and struck her right forehead - No LOC; not on blood thinners - Vit D 34.6 on 02/18/24 - Head/cervical spine CTs without acute findings - Right wrist x-ray revealed acute comminuted impacted displaced distal right radial fracture - Left wrist x-ray revealed acute comminuted mildly displaced distal left radial fracture - Oxycodone 5 mg for moderate pain and 10 mg for severe pain every 6 hours as needed - [facility] orthopedics planned on outpatient bilateral wrist surgery on 02/21/24. However, patient would not be able to go to rehab postoperatively then, which she had concerns about. -- Per Alonzo Wiggins PA-C, Dr. Deng does not have OR time at [facility] this week or in the near future. - Patient wishes to move forward with [facility] to have surgery while inpatient so she can be discharged to rehab post-op. -- Discussed case with Chance Shahid PA-C. Plan for him and Dr. Berrios to assess the patient in the morning. -- NPO at midnight for potential of surgery. (2) Closed fracture of left distal radius: (3) Closed fracture of right distal radius: Plan Discussed case with [facility] orthopedics. Discussed case with [facility] orthopedics. Updated patient's son, Vicente, via phone call. Disposition: pending pt ability to preform ADLs and support at home CODE STATUS: Full code Admission and Anticipated Discharge Date Admission Date: February 16, 2024 Subjective Patient seen and evaluated at bedside. Her pain is well-controlled with medication. She had planned to have bilateral ORIF of her wrists on an outpatient surgery center on 02/21/2024, however then had some concerns about not being able to immediately go into rehab postoperatively. I talked with Alonzo Wiggins from [facility], however, Dr. Deng does not have OR time this week or in the near future. I reached out to [facility] to see if they would be able to operate on her while inpatient so she could be discharged to rehab. Dr. Berrios will see the patient in the morning for an assessment. Patient is n.p.o. at midnight due to possibility of surgery tomorrow. Physical Exam Physical Exam: General: No acute distress, nondiaphoretic, well-developed, well-nourished. Cardiac: Regular rate and rhythm without murmurs gallops or rubs. Pulm: Clear to auscultation bilaterally without wheezes, rales or rhonchi. No retractions or accessory muscle use. Neuro: A&O x3. No focal neurological deficits. Extremities: Left wrist in cock up wrist brace. Right wrist in sugar-tong splint. Distal sensations intact. Results & Data Results & Data Vital Signs (Past 12 Hours) Vital Signs Temp Pulse Resp BP Pulse Ox O2 Del Method 02/18/24 14:32 36.5 C 74 16 112/70 94 Room Air 02/18/24 12:00 36.6 C 76 18 110/68 93 Room Air 02/18/24 07:42 36.6 C 70 17 150/90 H 95 Room Air Laboratory Results Reviewed CBC Reviewed vitamin D PG Care Time/CCT Total # of Minutes Spent Total Time Spent with Patient: Total time spent is greater than 50% in coordination of care (as documented) at patient's floor/unit and/or counseling patient: Coding Level of Care Code 13547 SUB INP/OBS CARE 3/50MIN Diagnoses Fall W19.XXXA Closed fracture of left distal radius S52.502A Encounter type: initial encounter Closed fracture of right distal radius S52.501A Encounter type: initial encounter (2) Closed fracture of left distal radius Encounter type: initial encounter (3) Closed fracture of right distal radius Encounter type: initial encounter
[2024-02-19 06:50] LABS: Basophils # (auto) 0.02 K/uL (0.00-0.20); Basophils % (auto) 0.6 %; Eosinophils # (auto) 0.14 K/uL (0.00-0.50); Eosinophils % (auto) 3.9 %; Hematocrit (blood only) 38.1 % (37.0-47.0); Hemoglobin 12.9 g/dl (12.0-16.0); Immature Granulocytes # (auto) 0.01 K/uL (0.01-0.20); Immature Granulocytes % (auto) 0.3 %; Lymphocytes # (auto) 0.87 K/uL (1.20-3.40); Lymphocytes % (auto) 24.4 %; Mean Corpuscular Hemoglobin 32.3 pg (25.0-34.0); Mean Corpuscular Hgb Conc 33.9 g/dL (32.0-36.0); Mean Corpuscular Volume 95.5 fL (80.0-100.0); Mean Platelet Volume 9.8 fL (9.4-12.4); Monocytes # (auto) 0.75 K/uL (0.11-0.59); Neutrophils # (auto) 1.78 K/uL (1.40-6.50); Neutrophils % (auto) 49.8 %; Platelet Count 185 K/uL (130-400); RDW Coefficient of Variation 12.9 % (11.5-14.5); RDW Standard Deviation 45.1 fL (36.4-46.3); Red Blood Count 3.99 M/uL (4.20-5.40); White Blood Count 3.57 K/ul (4.8-10.8)
[2024-02-19 07:27] LABS: BUN Creatinine Ratio 29.4 (10-20); Calcium 8.1 mg/dl (8.6-10.3); Est GFR (African American) 109.8 ml/min; Est GFR (Non-African American) 94.7 ml/min
--- NOTE | 2024-02-19 12:14 | XRay Report ---
RIGHT WRIST 2 VIEWS CLINICAL HISTORY: Follow-up wrist fractures. Findings AP and lateral views of the right wrist are compared to studies dated 02/16/2024. Correlation is made with CT of the wrist dated 02/17/2024. The examination is performed through a cast, obscuring fine bony detail. The skeletal structures are osteopenic. Again seen is an impacted and comminuted i ntra-articular fracture of the distal radial metaphysis. There are mildly displaced fragments. Near-a natomic alignment is maintained. Avulsion fracture volar styloid is again noted. The age-indeterminat e scaphoid fracture seen by CT is not apparent on x-ray.. No new fracture is seen. Overlying soft tis puneet edema is noted. IMPRESSION: 1. Again seen are fractures of the distal radius and ulna as above. 2. The distal radial fracture is in near anatomic alignment. Electronically signed by: Thong Benedict M.D. 02/19/2024 12:12 PM
--- NOTE | 2024-02-19 13:10 | Orthopedic Consultation ---
Date of Service February 19, 2024 Assessment & Plan (1) Closed fracture of right distal radius: (2) Closed fracture of left distal radius: Plan Patient was seen and evaluated with Dr. Berrios today with this agreed-upon plan. We had a long discussion today with the patient about her bilateral wrist fractures. At this time, we do not feel that she would benefit from open reduction internal fixation of either wrist. We do feel that this would heal quite well with immobilization utilizing short arm cast. We discussed the risk, benefits, alternatives to nonoperative treatment with immobilization of the bilateral wrist in great detail with ample amount of time for the patient ask any questions stating concerns. All question concerns were answered to the patient satisfaction. She wishes to proceed with nonoperative treatment. We will continue her with a sugar-tong splint to the right upper extremity until she follows up in office. As for the left wrist, we are going to place a short arm cast on her today. Post casting instructions were discussed in detail with the patient with verbalized understanding. She will need to follow-up with Dr. Berrios in 1 week for fracture management. From an orthopedic standpoint, she can be discharged when medically cleared. Please reach out by [place] text or to [facility] orthopedics if this patient situation is to change. History of Present Illness Reason for Consultation: . Second opinion for bilateral wrist fractures Requesting Physician: . Attending Physician: Elijah Villarreal MD . Opal is a pleasant 74-year-old female who is hospitalized currently due to bilateral wrist fractures. She notes that back on February 15, she was walking on the sidewalk when she tripped and tried to catch herself on her outstretched arms. She noted that she was having a lot of pain to her wrist so she came to the emergency department where x-rays were completed and found that she had bilateral wrist fractures. She was then seen on consultation by Dr. Kim who recommended ORIF of the bilateral wrist fractures. We were asked to see her as a second opinion due to discharge concerns. Today, she notes that her pain is well-controlled in her immobilizers. She is currently in a sugar-tong splint to the right upper extremity and a Velcro wrist splint to the left wrist. She has been up and out of bed with no significant issues. She states that most of her discomfort is brought on whenever she moves her left wrist a little bit. She notes the right wrist is pretty well immobilized and has not been giving her any issues. She does have a past medical history of osteoporosis and anaplasmosis. She denies a history of diabetes, thyroid disease, or significant cardiovascular disease. She is not on any anticoagulation. She denies any other concerns today. Allergies Allergy/AdvReac Type Severity Reaction Status Date / Time codeine Allergy Intermediate RASH & N/V Verified 12/25/23 09:57 Home Medications Medication Instructions Recorded Confirmed Type calcium carbonate 500 mg-vitamin 1 tab PO QPM 05/28/19 02/16/24 History D3 10 mcg (400 unit) tablet (Calcium 500 With D) zoledronic acid 5 mg/100 mL in See Rx Instructions .Route .COMPLEX 07/24/22 02/16/24 History mannitol 5 %-water intravenous piggybck (Reclast) cholecalciferol (vitamin D3) 25 25 mcg PO DAILY 09/10/23 02/16/24 History mcg (1,000 unit) capsule oxycodone 5 mg tablet 5 mg PO Q6H PRN pain, severe #12 02/16/24 Rx tabs Past Med/Surg History Medical History PONV (postoperative nausea and vomiting) Osteoporosis Acid reflux History of diverticulitis Surgical History History of cataract surgery History of benign breast biopsy History of tubal ligation History of esophagogastroduodenoscopy (EGD) History of colonoscopy History of bowel resection Family History Grandmother Diabetes Mother Leukemia Father Skin cancer Prostate cancer Sister Slow to wake up after anesthesia Denies family history of Ovarian cancer Breast cancer Colorectal cancer Social History Smoking Status: Never smoker Second Hand Exposure: No; Do You Dip or Chew Tobacco: No; Hx Alcohol Use: Yes Alcohol type: wine Alcohol Intake Frequency: 4 or More x per/Week Hx Substance Use: No Preferred Language: Ukrainian Communication Ability: Effective Hearing Ability: Normal Internal Communications Intern Required: No Beliefs That Will Affect Care: None marital status: / Current Living Situation: Alone current occupational status: retired How many Children do You have: 1 Feels Safe at Home: Yes Childhood Exposure to Second-Hand Smoke: Yes caffeine: Yes (coffee; one cup a day ) Dental Care, Regularly: Yes Physical Activity Frequency: Daily Seatbelt Use: always Sunscreen Use: Yes Assistive Devices: None Review of Systems All systems reviewed & are unremarkable except as noted in HPI & below. Physical Exam .General: no acute distress; pleasant affect; non-toxic appearing; well- nourished; cooperative HEENT: normocephalic, atraumatic; no scleral icterus; PERRLA w/ EOMs intact; moist mucus membrane; vision and hearing grossly intact Neck: supple; no lymphadenopathy; trachea midline Skin: warm, dry without signs of tenting; no cyanosis; no rashes, bruising, lesions, or erythema noted CV: chest wall NTP; RRR; S1/S2 normal; no murmurs/rubs/gallops; pulses intact and symmetric at radial, DP, and PT Lungs: no acute respiratory distress; symmetrical chest wall expansion; clear breath sounds across all lung schilling w/o adventitious sounds; no wheezing ABD: Soft, NTP; BS present; no rebound/guarding; no distention Neuro: A&Ox3; normal mood and affect; fluent speech; no focal deficits; sensation grossly intact in the LEs b/l Musculoskeletal On physical examination of the right wrist, she is currently in her sugar-tong splint is in place, clean, and intact. She is able to wiggle all 5 digits. She does have slight edema and ecchymosis ranging to the fingers. Less than 2- second capillary refill. Normal sensation. Neurovascular intact. On physical examination of the left wrist, she has slight edema with ecchymosis diffusely throughout the left upper extremity. Tenderness to palpation diffusely throughout the wrist. Able to wiggle all 5 digits. +2 DP and PT pulses. Less than 2-second capillary refill. Normal sensation. Neurovascular intact. Results & Data Results & Data Laboratory Results . Diagnostic Findings Wrist X-Ray 02/16/24 11:40 XR wrist RT min 3V routine CLINICAL HISTORY: foosh COMPARISON: None FINDINGS: There is an acute comminuted impacted displaced intra-articular distal right radial fracture. Dorsal tilt of the distal component is noted. Right wrist soft tissue swelling is noted. A lucency projects over the dorsal navicular. Possible nondisplaced fracture of the ulnar styloid. IMPRESSION: 1. Acute comminuted impacted displaced intra-articular distal right radial fracture with dorsal tilt of the distal component. 2. Lucency which projects over the dorsal navicular. This is likely artifactual however an acute nondisplaced fracture cannot be excluded. 3. Possible nondisplaced fracture of the ulnar styloid. ACT 112: Negative or not required by law. Electronically signed by: Zach Jimenez M.D. 02/16/2024 12:20 PM Wrist X-Ray 02/16/24 11:40 XR wrist LT min 3V routine CLINICAL HISTORY: foosh COMPARISON: Left wrist radiographs January 30, 2017. FINDINGS: There is an acute comminuted mildly displaced fracture of the dorsal left radius with intra-articular extension. Distal left ulna is intact. There is chondrocalcinosis within the TFCC. No carpal bone fractures are identified. There is left wrist soft tissue swelling. IMPRESSION: Acute comminuted mildly displaced distal left radial fracture with intra-articular extension. ACT 112: Negative or not required by law. Electronically signed by: Zach Jimenez M.D. 02/16/2024 12:[address] 02/17/24 08:[address] DOSE: 257.94 mGy.cm HISTORY: Right wrist fracture TECHNIQUE: Multiaxial CT images of the right wrist were performed and ref ormatted in the sagittal and coronal plane without the use of contrast. A dose lowering technique was utilized adhering to the principles of ALARA. COMPARISON: Right wrist radiograph 02/16/2024. FINDINGS: There is an acute comminuted and mildly impacted intra-articular fracture within the distal right radius. This demonstrates 2 mm of impaction and 3 mm of dorsal displacement. Nondisplaced fracture at the ulnar styloid. Small lucency at the dorsal aspect of the scaphoid again noted. This likely represents a subacute to chronic nondisplaced fracture. No dislocation. Diffuse soft tissue swelling within the wrist. There is a right wrist effusion. IMPRESSION: 1. Redemonstration of a distal radius and ulnar styloid fractures as described above. 2. Small lucency at the dorsal aspect of the scaphoid appears to represent a subacute to chronic nondisplaced fracture. ACT 112: Negative or not required by law. Electronically signed by: Nito Joaquin M.D. 02/17/2024 9:56 AM Wrist X-Ray 02/18/24 20:32 RIGHT WRIST 2 VIEWS CLINICAL HISTORY: Follow-up wrist fractures. Findings AP and lateral views of the right wrist are compared to studies dated 02/16/2024. Correlation is made with CT of the wrist dated 02/17/2024. The examination is performed through a cast, obscuring fine bony detail. The skeletal structures are osteopenic. Again seen is an impacted and comminuted intra-articular fracture of the distal radial metaphysis. There are mildly displaced fragments. Near-anatomic alignment is maintained. Avulsion fracture volar styloid is again noted. The age-indeterminate scaphoid fracture seen by CT is not apparent on x-ray.. No new fracture is seen. Overlying soft tissue edema is noted. IMPRESSION: 1. Again seen are fractures of the distal radius and ulna as above. 2. The distal radial fracture is in near anatomic alignment. Electronically signed by: Thong Benedict M.D. 02/19/2024 12:12 PM PG Care Time/CCT Total # of Minutes Spent Total Time Spent with Patient: Total time spent is greater than 50% in coordination of care (as documented) at patient's floor/unit and/or counseling patient: Coding Level of Care Code 60393 IN/OBS CONSULT LVL 3,45M Diagnoses Closed fracture of right distal radius S52.501A Encounter type: initial encounter Closed fracture of left distal radius S52.502A Encounter type: initial encounter Additional Codes Fx Wrist - Distal radius: Distal radius ([id number]) (1) Closed fracture of right distal radius Encounter type: initial encounter (2) Closed fracture of left distal radius Encounter type: initial encounter
--- NOTE | 2024-02-19 17:44 | Discharge Summary ---
Discharge Summary Date of Service February 19, 2024 Admission HPI Per Admitting Provider Opal is a pleasant 74yo female with PMH of osteoporosis and anaplasmosis. She presented after tripping on the sidewalk today and catching her self on her wrists on 02/15. Patient was reportedly out walking with her son (Vicente) this morning around 10 AM. She normally uses trekking poles to assist with walking, but she was not using them this morning. She stepped on an uneven sidewalk while looking at a lawn ornament and fell forward onto her right knee, wrists bilaterally, and struck her right forehead. Not on blood thinners. No LOC. She denies any recent falls, and does not normally use ambulatory assist devices such as a walker or a cane. She endorses 11/10 bilateral wrist pain at its worst, but reports the pain is well-controlled in the ED and is currently at 2/10. No radiation of over the mid forearm bilaterally. She did take 2 Advil prior to coming in. She does not take daily medications other than her vitamin D and multivitamin. Patient does not remember what she took when she developed a codeine rash and nausea in the past, but notes it was more than 20 years ago; is amenable to trying oxycodone as needed (prior to new peripheral IV insertion). Patient's vitals are stable at time of admission. ED course: Fentanyl 50 mcg IV x 2 ROS: Patient endorses pain in both wrists, and initial numbness and tingling in the wrist/hands (that has resolved), and some nausea following the event. Patient denies fever, chills, night sweats, dizziness or lightheadedness prior to fall, headache, changes in vision, chest pain, pleuritic CP, chest palpitations, cough, abdominal pain, vomiting, diarrhea, change in urinary/bowel habits, or unresolved numbness and tingling in the arms. Admission Exam Per Admitting Provider General: no acute distress; pleasant affect; non-toxic appearing; well- nourished; cooperative; 98% on RA HEENT: normocephalic, atraumatic; no scleral icterus; PERRLA w/ EOMs intact; moist mucus membrane; vision and hearing grossly intact Neck: supple; no lymphadenopathy; trachea midline Skin: warm, dry without signs of tenting; no cyanosis; no rashes, bruising, lesions, or erythema noted CV: chest wall NTP; RRR; S1/S2 normal; no murmurs/rubs/gallops; pulses intact and symmetric at radial, DP, and PT Lungs: no acute respiratory distress; symmetrical chest wall expansion; clear breath sounds across all lung schilling w/o adventitious sounds; no wheezing ABD: Soft, NTP; BS present; no rebound/guarding; no distention MSK: no tics or fasciculations; no edema noted in the LEs b/l, nonerythematous Neuro: A&Ox3; normal mood and affect; fluent speech; no focal deficits; sensation grossly intact in the LEs b/l Principal Dx & Hospital Course #1 = Principal Diagnosis (1) Fall: - Patient tripped on uneven sidewalk at 10 AM on 02/15 and fell on her wrists, right knee, and struck her right forehead - No LOC; not on blood thinners - Vit D 34.6 on 02/18/24 - Head/cervical spine CTs without acute findings - Right wrist x-ray revealed acute comminuted impacted displaced distal right radial fracture - Left wrist x-ray revealed acute comminuted mildly displaced distal left radial fracture - [facility] [place] planned on outpatient bilateral wrist surgery on 02/21/24. However, patient would not be able to go to rehab postoperatively then, which she had concerns about. - Patient wished to have second opinion with [facility]. -- Dr. Berrios evaluated the patient. It was ultimately decided to move forward with nonoperative management. -- Continue with sugar-tong splint to right upper extremity and short arm cast on left upper extremity. -- Follow-up with Dr. Berrios in 1 week for fracture management. - Patient discharged with home health. (2) Closed fracture of left distal radius: (3) Closed fracture of right distal radius: Plan CODE STATUS: Full code Discharge Exam General: No acute distress, nondiaphoretic, well-developed, well-nourished. Cardiac: Regular rate and rhythm without murmurs gallops or rubs. Pulm: Clear to auscultation bilaterally without wheezes, rales or rhonchi. No retractions or accessory muscle use. Neuro: A&O x3. No focal neurological deficits. Extremities: Left wrist in cock up wrist brace. Right wrist in sugar-tong splint. Distal sensations intact. Updated Medication List Medication Instructions Recorded Confirmed Type calcium carbonate 500 mg-vitamin 1 tab PO QPM 05/28/19 02/16/24 History D3 10 mcg (400 unit) tablet (Calcium 500 With D) zoledronic acid 5 mg/100 mL in See Rx Instructions .Route .COMPLEX 07/24/22 02/16/24 History mannitol 5 %-water intravenous piggybck (Reclast) cholecalciferol (vitamin D3) 25 25 mcg PO DAILY 09/10/23 02/16/24 History mcg (1,000 unit) capsule oxycodone 5 mg tablet 5 mg PO Q6H PRN pain, severe #12 02/16/24 Rx tabs Hospital Stay Data Consultations 02/16/24 16:51 ED Decision to Admit Stat 02/16/24 20:57 Consult Orthopedic Surgery Routine 02/19/24 15:21 Consult PANKAJG chief accounting officer Routine Diagnostic Imagining Performed 02/16/24 11:40 CT cervical spine wo con Stat CT head/brain wo con Stat 02/17/24 08:04 CT wrist RT wo con Routine Pending Results Patient Have Any Pending Studies at Discharge: No Discharge Instructions Given to Patient (Per Discharging Provider) Jaret Crystal were admitted to the hospital due to bilateral closed wrist fractures after sustaining a fall from ground-level. After meeting with the orthopedic surgeon, they felt that he would not benefit from open reduction internal fixation surgery of either wrist. They feel as though this will heal quite well with immobilization utilizing short arm cast. Since it was determined to proceed with nonoperative treatment, you will continue in the sugar-tong splint to your right upper extremity until you follow-up with orthopedics in their outpatient office. For your left wrist, you were placed in a short arm cast today. Home health has been set up and will visit for 1 hour 23 times weekly. Upon discharge from the hospital: * Continue taking Tylenol as needed for pain. You can take 650 mg every 4 hours as needed. You can get Tylenol [id number]-wcflreo (OTC). * Take oxycodone 5 mg every 6 hours as needed for breakthrough pain. A prescription for this was sent to the [facility] pharmacy in [place]. * Follow-up with Dr. Berrios in orthopedics in 1 week for fracture management. Their office will call you with an appointment date and time. * Continue with home health. They should call you this evening to schedule an arrival time for tomorrow. It was a pleasure taking care of you while you were in the hospital, Ellyn Leger PA-C Total Time Total Time Spent Total Time Spent (In Minutes): Greater than 30 minutes spent completing this discharge process including direct patient care, medication reconciliation, documentation, review of labs and images, and coordination of care. Coding Level of Care Code 73721 INP/OBS DISCH >30 MIN Diagnoses Fall W19.XXXA Closed fracture of left distal radius S52.502A Encounter type: initial encounter Closed fracture of right distal radius S52.501A Encounter type: initial encounter
--- NOTE | 2024-02-20 11:06 | Coding Query ---
CODING QUERY To promote full compliance with coding requirements relating to patient care, provider participation is requested in all cases of quality control uncertainty. Please assist us with the question(s) below: Coding Question(s): Documentation in the medical record indicates this patient has been admitted with or diagnosed as having BILAT DISTAL RADIUS FRACTURE. The following is also documented in the medical record: HP- PMH of osteoporosis and anaplasmosis. She presented after tripping on the sidewalk today and catching her self on her wrists on 02/15. She does not take daily medications other than her vitamin D and multivitamin. . TheOfficial Guidelines for Coding and Reporting,Section I. C. 13. D. 2. state "A code from category M80 (pathological fx), not a traumatic fracture code, should be used for any patient with knownosteoporosiswho suffers a fracture, even if the patient had a minor fall or trauma, if that fall or trauma would not usually break a normal healthy bone." Based on your medical judgment, can you please clarify/provide in the progress notes whether FRACTURE OF BILAT RADIUS were: o Osteoporotic fracture o In responding to this request, please exercise your independent professional judgment. The fact that a question is asked does not imply that any particular diagnosis is desired or expected. unable to determine at this time as unclear of the exact mechanism of the fall, Physician's Response(s): Thank you Tamara Kapoor, CDIP, [facility] Principal Diagnosis: "that condition established after study, to be chiefly responsible for occasioning the admission of the patient to the hospital for care." Co-Existing Principal Diagnosis: "when two or more diagnoses equally meet the criteria for principal diagnosis as determined by the circumstances of admission, diagnostic work up, and/or therapy provided, and the Alphabetic Index, Tabular List, or another coding guideline does not provide sequencing direction, any one of the diagnoses may be sequenced first." "When the physician has documented what appears to be a current diagnosis in the body of the record, but has not included the diagnosis in the final diagnostic statement, the physician should be asked whether the diagnosis should be added." ([facility] 2 QTR90. p3-4) LUPILLO
== END 2024-02-19 17:46 | disposition home health service (06) | DRG 563 ==
LOC: ED 10:58 → 3W 18:15 → SUATTDRO 18:15 → INTOOBSV 18:15 → 3W 20:45